=== PATIENT | female | born 1985 | race Caucasian/White ===

== ENCOUNTER 2021-01-03 15:45 | Emergency (ER) | payer OTHER ==
[~2021-01-03] VITALS: Ht 162.6 cm; Wt 66.7 kg
--- OUTSIDE RECORDS SUMMARY | 2021-01-03 15:48 | XMS ---
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 [place] VISIT COUNT (12 MO.) [address] [place] [address] [address] [place] TOTAL 2 NOTE: Visits indicate total known visits. ED/UCC VISIT TRACKING (12 MO.) 01/03/2021 15:46 [facility] [place] TYPE: Emergency COMPLAINT: - SOB, CHEST PAIN, SORE THROAT, STUFFY NOSE 04/20/2020 15:43 [facility] [place] TYPE: Emergency DIAGNOSES: - HIP PAIN - Lumbago with sciatica, left side INPATIENT VISIT TRACKING (12 MO.) No inpatient visits to display in this time frame [id number]
[2021-01-03] MEDS ORDERED: GABAPENTIN100 MG PO (16:08)
--- NOTE | 2021-01-03 17:24 | EKG ---
[facility] [address] [facility] [place], [place] [address] Signed Normal sinus rhythm Normal ECG No previous ECGs available Confirmed by ANJANA RESENDIZ DO ([id number]) on 01/03/2021 5:24:19 PM Electronically Signed By: ANJANA RESENDIZ DO 01/03/21 1724 PATIENT NAME: ZAINAB HER Electrocardiogram DATE OF : 87 PHYSICIAN: ANJANA RESENDIZ DO REPORT #: [id number] REPORT IS CONFIDENTIAL AND NOT TO BE RELEASED WITHOUT AUTHORIZATION
== END 2021-01-03 19:27 | disposition home or self-care (01) ==
LOC: ED 15:45
DX: B34.9 Viral infection, unspecified (principal); J45.909 Unspecified asthma, uncomplicated; Z87.891 Personal history of nicotine dependence; Z79.899 Other long term (current) drug therapy; Z20.822 Contact with and (suspected) exposure to COVID-19
CPT/HCPCS: 71045; 93005; 93010; 99285-25; A9270; C9803; U0003